=== PATIENT | female | born 1950 | race Caucasian/White ===

== ENCOUNTER → 2024-12-16 16:11 | Outpatient (REF) | payer BC, SELFPAY | LOC: HWRAD 16:11 | PROVIDERS: ATTENDING PHYSICIAN Family Medicine | DX: M25.562 Pain in left knee (principal) | CPT/HCPCS: 73564 ==

== ENCOUNTER → 2025-05-09 10:34 | Outpatient (REF) | payer OTHER, SELFPAY | LOC: HWRAD 10:34 | PROVIDERS: ATTENDING PHYSICIAN Family Medicine | DX: M81.0 Age-related osteoporosis without current pathological fracture (principal); Z12.31 Encounter for screening mammogram for malignant neoplasm of breast; Z00.01 Encounter for general adult medical examination with abnormal findings; Z87.891 Personal history of nicotine dependence; F33.0 Major depressive disorder, recurrent, mild | CPT/HCPCS: 77063; 77067; 77080 ==